=== PATIENT | female | born 1950 | race African-American/Black ===

== ENCOUNTER 2023-05-14 10:40 | Outpatient (CLI) | payer OTHER | END 2023-05-14 10:41 | disposition home or self-care (01) | LOC: CSHLAB 10:40 | PROVIDERS: ATTEND Surgery | DX: Z01.818 Encounter for other preprocedural examination (principal); C25.0 Malignant neoplasm of head of pancreas | CPT/HCPCS: 93005; 93010 ==

== ENCOUNTER 2023-05-17 08:25 | Day surgery (SDC) | payer OTHER, MEDICAID ==
[2023-05-14 11:21] VITALS: BMI 23.0
[2023-05-17] MEDS ORDERED: EPINEPHrine 1 MG/ML VIAL ONE (09:20)
[2023-05-17] MEDS ORDERED: Bupivacaine PF 0.5% 30 ML VIAL ONE (09:21)
[2023-05-17] MEDS ORDERED: Clindamycin/D5W 600 mg/50 ml Premix Bag ONE (09:27)
[2023-05-17] MEDS ORDERED: PROPOFOL 20 ML ONE (09:38)
[2023-05-17] MEDS ORDERED: Ondansetron PF 4 MG/2 ML Vial ONE (10:11)
[2023-05-17] MEDS ORDERED: HYDROcodone/Acetaminophen 5/325 mg Tablet PO PRN (10:19)
[2023-05-17] MEDS ORDERED: Acetaminophen 325 MG TAB PO PRN (10:19)
== END 2023-05-17 11:15 | disposition home or self-care (01) ==
LOC: CSHSDC 08:25
PROVIDERS: ATTEND Surgery
PROC: 0JH60WZ Insertion of Totally Implantable Vascular Access Device into Chest Subcutaneous Tissue and Fascia, Open Approach (ICD-10-PCS; principal; 2023-05-17)
DX: C25.0 Malignant neoplasm of head of pancreas (principal); I10 Essential (primary) hypertension; K21.9 Gastro-esophageal reflux disease without esophagitis; Z88.0 Allergy status to penicillin; Z79.899 Other long term (current) drug therapy
CPT/HCPCS: 36561; 71045; J0171; C1788; J0665; J1642; J2405; J2704; J3490